=== PATIENT | female | born 1980 | race Two or more races ===

== ENCOUNTER 2017-09-26 08:28 | Outpatient (CLI) | payer OTHER | END 2017-09-26 08:40 | disposition home or self-care (01) | LOC: SONOGRAMA 08:28 → MAMO-SONO 09:15 | DX: N92.0 Excessive and frequent menstruation with regular cycle (principal); N84.0 Polyp of corpus uteri ==

== ENCOUNTER 2022-10-25 09:00 | Inpatient (IN) | payer OTHER ==
[2022-10-25] MEDS ORDERED: PROTO PO (10:22)
[2022-10-25] MEDS ORDERED: ZYRTEC10 M3 PO (10:22)
[2022-10-25] MEDS ORDERED: SYNTHROID112 MCG PO (10:22)
[2022-10-31] MEDS ORDERED: NORETHINDRONE AC5 MG (16:08)
[2022-10-31] MEDS ORDERED: SYNTHROID125 MCG (16:08)
[2022-10-31] MEDS ORDERED: PANTOPRAZOLE SO40 MG (16:08)
== END 2022-11-01 11:03 | disposition home or self-care (01) | DRG 334 ==
LOC: SURG 10-31 07:00 → O/R 10-31 09:41 → SURG 10-31 17:06 → SURH 10-31 18:23
PROVIDERS: Obstetrics & Gynecology Gynecology; ADMIT Surgery; ATTEND Surgery
PROC: 0DJD8ZZ Inspection of Lower Intestinal Tract, Via Natural or Artificial Opening Endoscopic (ICD-10-PCS; 2022-10-31)
PROC: 0UT94ZZ Resection of Uterus, Percutaneous Endoscopic Approach (ICD-10-PCS; 2022-10-31)
PROC: 0UT04ZZ Resection of Right Ovary, Percutaneous Endoscopic Approach (ICD-10-PCS; 2022-10-31)
PROC: 0UBC4ZZ Excision of Cervix, Percutaneous Endoscopic Approach (ICD-10-PCS; 2022-10-31)
PROC: 0UB44ZZ Excision of Uterine Supporting Structure, Percutaneous Endoscopic Approach (ICD-10-PCS; 2022-10-31)
PROC: 0DBP4ZZ Excision of Rectum, Percutaneous Endoscopic Approach (ICD-10-PCS; principal; 2022-10-31 07:00)
PROC: 0DNP4ZZ Release Rectum, Percutaneous Endoscopic Approach (ICD-10-PCS; 2022-10-31 07:00)
DX: N80.512 Deep endometriosis of the rectum (principal); N73.6 Female pelvic peritoneal adhesions (postinfective); Z20.822 Contact with and (suspected) exposure to COVID-19; D25.1 Intramural leiomyoma of uterus; D25.2 Subserosal leiomyoma of uterus; N80.03 Adenomyosis of the uterus; N72 Inflammatory disease of cervix uteri; N80.02 Deep endometriosis of the uterus